=== PATIENT | male | born 1950 | race Caucasian/White ===

== ENCOUNTER 2016-11-10 07:58 | Outpatient (CLI) | payer MEDICARE, OTHER | END 2016-11-10 07:59 | disposition home or self-care (01) | LOC: NC 07:58 | PROVIDERS: ATTEND Family Medicine | DX: E11.9 Type 2 diabetes mellitus without complications (principal) ==

== ENCOUNTER 2016-11-16 09:51 | Inpatient (IN) | payer OTHER, MEDICARE ==
--- NOTE | 2016-11-13 11:13 | HP ---
DATE OF CLINIC: 11/11/2016 COLEMAN ROWLAND : 1950 PLANNED PROCEDURE: Left Knee Uni-arthroplasty with a Possible Total Knee Arthroplasty DATE OF PROCEDURE: November 16, 2016 SURGEON: Dr. Alex Buchanan PCP: Dr. Sloan Monge ACTIVE PROBLEMS * Actinic Keratosis - last skin exam Derm. [place] 10/2012 * Allergic Rhinitis * Bundle Branch Block Right - echo LVEF 65-70% by Dr. Burrell 03/2001, normal cath 03/2011 * Diabetes Mellitus Type 2 * Dupuytren's Contracture - left hand * Dysmetabolic Syndrome X * Elevated Liver Enzymes * Hyperlipidemia * Intestinal Disorder Diverticulosis - colonoscopy 12/2007 (Dr. Steven) * Leukopenia - evaluated 01/[address] Carr, thought to be normal variation. * Male Erectile Dysfunction * Nonalcoholic Steatohepatitis - [facility] Hepatology (Dr. Haddad) 03/2013 * Peyronie's Disease * Renal Cyst - complex left 03/2014 (f/u six and twelve months) * Skin Neoplasm Face Malignant Basal Cell Carcinoma * Skin Neoplasm Trunk Basal Cell Carcinoma - bx'd 10/2012 HISTORY OF PRESENT ILLNESS Coleman Rowland is a 66 year old male. * Medication list reviewed with patient allergy list reviewed with patient. Mr. Rowland is in today pre-operatively for his upcoming left knee uni-compartmental versus total knee arthroplasty with Dr. Buchanan on 11/16/16. Patient presents in good spirits and is ready to proceed. He denies recent illness or change in health. Pre-operative labs from 10/28/16 reveal elevated liver enzymes secondary to his chronic nonalcoholic steatohepatitis. Patient states he's felt well and has good exercises tolerance with the exception of limitations due to his knee. His recent consult with Dr. Buchanan follows: 66-year-old male here for recheck of left knee. He has most recently been seen by Adebayo. He is known to me in the past for a left knee arthroscopy with partial medial meniscectomy and debridement of the medial compartment in 2010. Unfortunately, over the last 2 years he has progressively had more weight-bearing related pain, worse at startup, non-mechanical, fairly diffuse. It is affecting his desired weight-bearing activities. He does some swelling by the end of the day. No hip pain, no radicular symptoms and no significant problems on the contralateral side. He is interested in a definitive treatment algorithm. No recent illnesses. Comorbidities include hyperlipidemia. CURRENT MEDICATION * Aspirin 81 MG Tablet Delayed Release 1 once a day 0 days, 0 refills * Lovastatin 40 MG Tablet 1 every bedtime, 30 days, 3 refills * Pentoxifylline ER 400 MG Tablet Extended Release as directed 0 days, 0 refills * Viagra 100 MG Tablet TAKE 1/2 TO 1 TAB BY MOUTH 1/2 TO 4 HOURS PRIOR TO SEXUAL ACTIVITY -MAX 1 TAB PER DAY, 30 days, 0 refills PAST MEDICAL/SURGICAL HISTORY Reported: Medical: A history of cancer 3 basal cell carcinoma removed from face and torso, Reported numbness, Reported tingling, cardiac history, history of Arthritis, and Hyperlipidemia. Surgical / Procedural: Arthroscopy Left knee scope 04/15/[address] Buchanan and Cardiac surgery angiogram 2009. Diet: A high-fat diet. Diagnoses: Sinusitis. Cancer skin basal cell carcinoma nasal bridge and left face hyperlipidemia arthritis left knee and lower back hepatitis acute illness when younger DDD L4 Colonoscopy one year ago by Dr. Steven Basal cell ca right upper lip, follow up Moh's scheduled by Derm for April. Surgical: * Vasectomy x 2 second 15 years ago. vasectomy reversal in between SOCIAL HISTORY Behavioral: Caffeine use and non-smoker never smoked. Smoking status: Never smoker and smoking status: Never smoker. Alcohol: Alcohol 2-3 drinks a week and alcohol use. Home Environment: Lives with spouse. 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 Marital: Marital history 4 children. * SBIRT Screening Performed Diet: fairly good per patient. High triglycerides. ALLERGIES * Grass Pollen FAMILY HISTORY Coronary artery disease Paternal: Diabetes mellitus Maternal: Hypertension REVIEW OF SYSTEMS Systemic: No fever and no recent weight change. Head: No head symptoms. Cardiovascular: No cardiovascular symptoms. Pulmonary: No pulmonary symptoms. Gastrointestinal: No gastrointestinal symptoms. Psychological: No psychological symptoms. Skin: No skin lesions and no rash. PHYSICAL FINDINGS * Vitals taken 11/11/2016 10:05 am BP-Sitting R 125/71 mmHg 100 - 120/60 - 80 BP Cuff Size Regular Pulse Rate-Sitting 64 bpm 50 - 100 Temp-Oral 97.4 F 96 - 101 Height 72 in 64 - 74 Weight 198 lbs 123 - 215 Body Mass Index 26.9 kg/m2 Body Surface Area 2.12 m2 Pain Level 1 Ears, Nose, Throat: * ENT: normal. Lungs: * Clear to auscultation. Cardiovascular: Heart Rate and Rhythm: * Normal. Abdomen: * Normal. Neurological: Motor: * Dominant Hand = Right Hand. Patient is a well-developed, well-nourished male in no acute distress, normal-appearing mood and affect. He ambulates with a stiff-legged, antalgic gait. He has genu varum on the left. Exam of the left knee shows mild swelling, trace effusion. Motion is just shy of full extension to 125 degrees actively, passively 0-130. His varus is correctable to neutral. He is mildly tender medially, mildly tender laterally accentuated with varus stress. No pain with patellar compression. Ligamentous exam is intact for cruciates and collaterals. Calf is soft and NT. Distal light touch sensation and motor function are grossly intact and symmetric. Pulses are 1+ and symmetric, posterior tibial and dorsalis pedis. Gentle rotation of the hip is nonirritable. Contralateral knee shows normal alignment, full, nonirritable motion with no focal periarticular tenderness. TESTS X-rays, 4 views from 01/10/16 reviewed, compared to prior films show progression of complete medial joint space loss, periarticular sclerosis and marginal spurring. There is slight irregularity at the lateral tibial spine. Patellofemoral joint is relatively well preserved. ASSESSMENT * Localized primary osteoarthritis of the left knee DJD, left knee, involving primarily the medial compartment radiographically and by exam. PREVIOUS TESTS * Test: URINALYSIS Report Date: 10/28/2016 GLUCOSE NEGATIVE PH,URINE 5.0 SPEC. GRAVITY 1.025 KETONE NEGATIVE NITRITE NEGATIVE BLOOD NEGATIVE BILIRUBIN NEGATIVE APPEARANCE CLEAR PROTEIN NEGATIVE COLOR YELLOW LEUK ESTERASE NEGATIVE UROBILINOGEN NORMAL * Test: CBC WITH DIFF Report Date: 10/28/2016 WBC 4.0 10*3/mL MCV 91.9 fL RBC 4.96 10*6/uL NEUTROPHILS 46.7 % MCH 29.8 pg MCHC 32.5 g/dL Low RDW 13.2 % PLATELET COUNT 163 10*3/mL IMM NEUT % 0.5 % IMM NEUT # 0.0 10*3/mL MONOCYTES 12.2 % High BASOPHIL 0.7 % EOSINOPHIL 2.2 % HCT 45.6 % HGB 14.8 g/L LYMPHOCYTE 37.7 % ANC 1.9 10*3/mL * Test: PROTHROMBIN TIME Report Date: 10/28/2016 PROTIME 10.2 s INR 0.97 * Test: PARTIAL THROMBOPLASTIN TIME Report Date: 10/28/2016 APTT 24.7 s * Test: COMPREHENSIVE METABOLIC PANEL Report Date: 10/28/2016 ALT/SGPT 87 U/L High ALBUMIN 4.2 g/dL ALB/GLOB RATIO 1.4 BUN 19 mg/dL BUN/CREAT RATIO 21 High CALCIUM 9.4 mg/dL GLUCOSE 160 mg/dL High CREATININE 0.9 mg/dL SODIUM 138 meq/L POTASSIUM 4.4 meq/L CHLORIDE 102 meq/L CARBON DIOXIDE 31 meq/L ANION GAP 9 meq/L TOT PROTEIN 7.3 g/dL GLOBULIN 3.1 g/dL BILI,TOTAL 0.6 mg/dL AST/SGOT 53 U/L High ALK PHOSPHATASE 230 U/L High GFR 85 * Test: MRSA SCREEN Report Date: 10/29/2016 MRSA SCREEN NEGATIVE * Test: MSSA SCREEN Report Date: 10/29/2016 MSSA SCREEN NEGATIVE FOR STAPHYLOCOCCUS AUREUS THERAPY * Patient fall risk screen negative and Patient fall risk screen negative. * Patient eligible for fall risk assessment and Patient eligible for fall risk assessment. * Patient received fall risk assessment and Patient received fall risk assessment. PLAN * OTHER OxyCONTIN 10 MG T12A, 1 po q 12 hours-TO BE USED FOR AFTER SURGERY, 10 days, 0 refills TraMADol HCl 50 MG TABS, 1 po q 6 hours prn pain-TO BE USED FOR AFTER SURGERY, 5 days, 0 refills OxyCODONE HCl 5 MG TABS, 1-2 po q 4-6 hours for break thru pain if needed-TO BE USED FOR AFTER SURGERY, 5 days, 0 refills * Knee replacement -partial, on the left with possible total knee arthroplasty Discussed with patient in detail the limitations, expectations as well as risks and possible complications of surgery including, but not limited to wound problems or infection, neurovascular injury, continued knee pain or dysfunction, including the possibility of prosthetic wear or failure over time that may require additional operative or non-operative treatment. Patient also realizes the perioperative risks including risks associated with anesthesia and would like to proceed. A full PAR conference was held, questions and concerns addressed and informed consent was obtained. Patient will be sent from my office for completion of the preoperative workup. [place] Hospitalist consult for perioperative medical management. Patient will use aspirin postoperatively for DVT prophylaxis. Patient would like to perform their postop PT at [facility] [place] with total knee arthroplasty protocol. CARE TEAM Sloan Monge MD [facility] Estuardo Camara MD Urology CC: Sloan Monge MD, [facility] [place] RS/sg
[~2016-11-16 09:51] MED LIST: BUPIVACAINE 0.25% (MDV) 20 ML in SODIUM CHLORIDE 0.9% FLUSH 20 ML IF PRN; BUPIVACAINE 0.25% (MDV) 24 ML, MORPHINE SULFATE 8 MG, EPINEPHRINE 0.3 MG in SODIUM CHLO... IF PRN; CEFAZOLIN SODIUM 2 GRAM PREMIX 100 ML IV PRN; CELECOXIB 200 MG CAPSULE PO ONE; CLONIDINE HCL 0.1 MG/24 HR (7 DAY PATCH) TD SCH; FAMOTIDINE 20 MG TABLET PO ONE; GABAPENTIN 600 MG TABLET PO ONE; ONDANSETRON 4 MG/2ML 2 ML VIAL IV ONE; OXYCODONE HCL 10 MG TAB.SR PO ONE; POLYMYXIN B SULFATE 500,000 UNITS, BACITRACIN 25,000 UNITS in SODIUM CHLORIDE 3 L IRRIG... IR PRN; TRAMADOL HCL 50 MG TABLET PO ONE; TRANEXAMIC ACID 1,000 MG in SODIUM CHLORIDE 0.9% 100 ML IV PRN
[2016-11-17] MEDS ORDERED: REMOVE PATCH 1 EACH UNIT TD SCH (07:00)
--- NOTE | 2017-01-18 13:51 | HP ---
DATE OF CLINIC: 12/30/2016 COLEMAN ROWLAND : 1950 PLANNED PROCEDURE: Left knee Uni-Arthroplasty with a Possible Total Knee Arthroplasty DATE OF PROCEDURE: January 19, 2017 SURGEON: Alex Buchanan M.D. PCP: Dr. Sloan Monge ACTIVE PROBLEMS * Actinic Keratosis - last skin exam Derm. [place] 10/2012 * Allergic Rhinitis * Bundle Branch Block Right - echo LVEF 65-70% by Dr. Burrell 03/2001, normal cath 03/2011 * Diabetes Mellitus Type 2 * Dupuytren's Contracture - left hand * Dysmetabolic Syndrome X * Elevated Liver Enzymes * Hyperlipidemia * Intestinal Disorder Diverticulosis - colonoscopy 12/2007 (Dr. Steven) * Leukopenia - evaluated 01/[address] Carr, thought to be normal variation. * Male Erectile Dysfunction * Nonalcoholic Steatohepatitis - [facility] Hepatology (Dr. Haddad) 03/2013 * Peyronie's Disease * Renal Cyst - complex left 03/2014 (f/u six and twelve months) * Skin Neoplasm Face Malignant Basal Cell Carcinoma * Skin Neoplasm Trunk Basal Cell Carcinoma - bx'd 10/2012 HISTORY OF PRESENT ILLNESS Coleman Rowland is a 66 year old male. * Medication list reviewed with patient allergy list reviewed with patient. Mr. Rowland is in today pre-operatively for his upcoming left knee uni-compartmental versus total knee arthroplasty with Dr. Buchanan on 01/19/17. Patient presents in good spirits and is ready to proceed. He denies recent illness or change in health. No prior surgical complications. Pre-operative labs are pending. Prior pre-op labs from 10/28/16 reveal elevated liver enzymes secondary to his chronic nonalcoholic steatohepatitis. Patient states he's felt well and has good exercises tolerance with the exception of limitations due to his knee. His recent consult with Dr. Buchanan follows: 66-year-old male here for recheck of left knee. He has most recently been seen by Adebayo. He is known to me in the past for a left knee arthroscopy with partial medial meniscectomy and debridement of the medial compartment in 2010. Unfortunately, over the last 2 years he has progressively had more weight-bearing related pain, worse at startup, non-mechanical, fairly diffuse. It is affecting his desired weight-bearing activities. He does some swelling by the end of the day. No hip pain, no radicular symptoms and no significant problems on the contralateral side. He is interested in a definitive treatment algorithm. No recent illnesses. Comorbidities include hyperlipidemia. CURRENT MEDICATION * Aspirin 81 MG Tablet Delayed Release 1 once a day 0 days, 0 refills * Lovastatin 40 MG Tablet 1 every bedtime, 30 days, 3 refills * MetFORMIN HCl 500 MG Tablet 1 twice a day with meals, 90 days, 3 refills * OxyCODONE HCl 5 MG Tablet 1-2 po q 4-6 hours for break thru pain if needed-TO BE USED FOR AFTER SURGERY, 5 days, 0 refills * OxyCONTIN 10 MG Tablet ER 12 Hour Abuse-Deterrent 1 po q 12 hours-TO BE USED FOR AFTER SURGERY, 10 days, 0 refills * Pentoxifylline ER 400 MG Tablet Extended Release as directed 0 days, 0 refills * TraMADol HCl 50 MG Tablet 1 po q 6 hours prn pain-TO BE USED FOR AFTER SURGERY, 5 days, 0 refills * Viagra 100 MG Tablet TAKE 1/2 TO 1 TAB BY MOUTH 1/2 TO 4 HOURS PRIOR TO SEXUAL ACTIVITY -MAX 1 TAB PER DAY, 30 days, 0 refills PAST MEDICAL/SURGICAL HISTORY Reported: No recent change in medical history. Medical: A history of cancer 3 basal cell carcinoma removed from face and torso, Reported numbness, Reported tingling, cardiac history, history of Arthritis, and Hyperlipidemia. Surgical / Procedural: Arthroscopy Left knee scope 04/15/[address] Buchanan and Cardiac surgery angiogram 2009. Diet: A high-fat diet. Diagnoses: Sinusitis. Cancer skin basal cell carcinoma nasal bridge and left face hyperlipidemia arthritis left knee and lower back hepatitis acute illness when younger DDD L4 Colonoscopy one year ago by Dr. Steven Basal cell ca right upper lip, follow up Moh's scheduled by Derm for April. Surgical: * Vasectomy x 2 second 15 years ago. vasectomy reversal in between SOCIAL HISTORY Social history unchanged. Behavioral: Caffeine use daily and non-smoker never smoked. Smoking status: Never smoker. Alcohol: Alcohol 2-3 drinks a week and alcohol use occasional (2 beers per week or less). Home Environment: Lives with spouse. 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 Marital: Marital history 4 children. * SBIRT Screening Performed Diet: fairly good per patient. High triglycerides. ALLERGIES * atorvastatin calcium (Intolerance) Reaction: Sleeplessness, itcing * Grass Pollen FAMILY HISTORY Coronary artery disease Paternal: Diabetes mellitus Maternal: Hypertension REVIEW OF SYSTEMS Systemic: No fever and no recent weight change. Head: No head symptoms. Cardiovascular: No cardiovascular symptoms. Pulmonary: No pulmonary symptoms. Gastrointestinal: No gastrointestinal symptoms. Psychological: No psychological symptoms. Skin: No skin lesions and no rash. PHYSICAL FINDINGS * Vitals taken 12/30/2016 11:05 am BP-Sitting L 129/73 mmHg 100 - 120/60 - 80 BP Cuff Size Regular Pulse Rate-Sitting 62 bpm 50 - 100 Temp-Oral 97 F 96 - 101 Height 72 in 64 - 74 Weight 201 lbs 123 - 215 Body Mass Index 27.3 kg/m2 Body Surface Area 2.13 m2 Pain Level 0 Ears, Nose, Throat: * ENT: normal. Lungs: * Clear to auscultation. Cardiovascular: Heart Rate and Rhythm: * Normal. Abdomen: * Normal. Neurological: Motor: * Dominant Hand = Right Hand. Patient is a well-developed, well-nourished male in no acute distress, normal-appearing mood and affect. He ambulates with a stiff-legged, antalgic gait. He has genu varum on the left. Exam of the left knee shows mild swelling, trace effusion. Motion is just shy of full extension to 125 degrees actively, passively 0-130. His varus is correctable to neutral. He is mildly tender medially, mildly tender laterally accentuated with varus stress. No pain with patellar compression. Ligamentous exam is intact for cruciates and collaterals. Calf is soft and NT. Distal light touch sensation and motor function are grossly intact and symmetric. Pulses are 1+ and symmetric, posterior tibial and dorsalis pedis. Gentle rotation of the hip is non-irritable. Contralateral knee shows normal alignment, full, non-irritable motion with no focal periarticular tenderness. TESTS X-rays, 4 views from 01/10/16 reviewed, compared to prior films show progression of complete medial joint space loss, periarticular sclerosis and marginal spurring. There is slight irregularity at the lateral tibial spine. Patellofemoral joint is relatively well preserved. ASSESSMENT * Localized primary osteoarthritis of the left knee DJD, left knee, involving primarily the medial compartment radiographically and by exam. THERAPY * Patient fall risk screen negative. * Patient eligible for fall risk assessment. * Patient received fall risk assessment. PLAN * Unilateral primary osteoarthritis, left knee Physical Therapy: [facility] [phone] * Knee replacement -partial, on the left with possible total knee arthroplasty Discussed with patient in detail the limitations, expectations as well as risks and possible complications of surgery including, but not limited to wound problems or infection, neurovascular injury, continued knee pain or dysfunction, including the possibility of prosthetic wear or failure over time that may require additional operative or non-operative treatment. Patient also realizes the perioperative risks including risks associated with anesthesia and would like to proceed. A full PAR conference was held, questions and concerns addressed and informed consent was obtained. Patient will be sent from my office for completion of the preoperative workup. [place] Hospitalist consult for perioperative medical management. Patient will use aspirin 325mg daily for 6 weeks postoperatively for DVT prophylaxis. Patient would like to perform their postop PT at [facility] in [place] with left total knee arthroplasty protocol. CARE TEAM Sloan Monge MD [facility] Estuardo Camara MD Urology CC: Sloan Monge MD, [facility] [place] RS/sg
[2017-01-19] MEDS ORDERED: OXYCODONE HCL 10 MG TAB.SR PO ONE ×2 (05:30→05:33)
[2017-01-19] MEDS ORDERED: BUPIVACAINE 0.25% (MDV) 20 ML in SODIUM CHLORIDE 0.9% FLUSH 20 ML IF PRN (05:30)
[2017-01-19] MEDS ORDERED: CELECOXIB 200 MG CAPSULE PO ONE (05:30)
[2017-01-19] MEDS ORDERED: BUPIVACAINE 0.25% (MDV) 24 ML, MORPHINE SULFATE 8 MG, EPINEPHRINE 0.3 MG in SODIUM CHLO... IF PRN (05:30)
[2017-01-19] MEDS ORDERED: CLONIDINE HCL 0.1 MG/24 HR (7 DAY PATCH) TD SCH (05:30)
[2017-01-19] MEDS ORDERED: TRANEXAMIC ACID 1,000 MG in SODIUM CHLORIDE 0.9% 100 ML IV PRN (05:30)
[2017-01-19] MEDS ORDERED: GABAPENTIN 600 MG TABLET PO ONE (05:30)
[2017-01-19] MEDS ORDERED: ONDANSETRON 4 MG/2ML 2 ML VIAL IV ONE (05:30)
[2017-01-19] MEDS ORDERED: POLYMYXIN B SULFATE 500,000 UNITS, BACITRACIN 25,000 UNITS in SODIUM CHLORIDE 3 L IRRIG... IR PRN (05:30)
[2017-01-19] MEDS ORDERED: CEFAZOLIN SODIUM 2 GRAM DUPLEX 50 ML IV PRN (05:30)
[2017-01-19] MEDS ORDERED: IV START KIT ONE (05:30)
[2017-01-19] MEDS ORDERED: TRAMADOL HCL 50 MG TABLET PO ONE (05:30)
[2017-01-19] MEDS ORDERED: FAMOTIDINE 20 MG TABLET PO ONE (05:30)
[2017-01-19] MEDS ORDERED: LACTATED RINGERS 1,000 ML ONE (05:30)
[2017-01-19] MEDS ORDERED: CLONIDINE HCL 0.1 MG/24 HR (7 DAY PATCH) TD ONE (05:33)
[2017-01-19] MEDS ORDERED: TRAMADOL HCL 50 MG TABLET ONE (05:33)
[2017-01-19] MEDS ORDERED: ONDANSETRON 4 MG/2ML 2 ML VIAL ONE (05:33)
[2017-01-19] MEDS ORDERED: GABAPENTIN 600 MG TABLET ONE (05:33)
[2017-01-19] MEDS ORDERED: FAMOTIDINE 20 MG TABLET ONE (05:33)
[2017-01-19] MEDS ORDERED: CELECOXIB 200 MG CAPSULE ONE (05:33)
[2017-01-19] MEDS ORDERED: CEFAZOLIN SODIUM 2 GRAM PREMIX 100 ML IV ONE (06:01)
[2017-01-19] MEDS ORDERED: MIDAZOLAM HCL 5 MG/5 ML VIAL ONE (06:30)
[2017-01-19] MEDS ORDERED: FENTANYL 100 MCG/2 ML VIAL ONE (06:30)
[2017-01-19] MEDS ORDERED: PROPOFOL 40 ML IV ONE (06:33)
[2017-01-19] MEDS ORDERED: LIDOCAINE 2% (PRES FREE) 5 ML VIAL ONE (06:33)
[2017-01-19] MEDS ORDERED: SPINAL PROCEDURAL TRAY 1 EACH ONE (06:39)
[2017-01-19] MEDS ORDERED: ROPIVACAINE 0.5% 30 ML VIAL ONE (06:39)
[2017-01-19] MEDS ORDERED: NERVE BLOCK PROCEDURAL TRAY 1 EACH ONE (06:43)
[2017-01-19] MEDS ORDERED: EPHEDRINE SULFATE UD SYR 25 MG 25 MG/5 ML SYRINGE IV ONE (08:01)
[2017-01-19] MEDS ORDERED: ON-Q PUMP/ROPIVACAINE 0.2% 450 ML ONE (09:19)
[2017-01-19] MEDS ORDERED: ON-Q PUMP/ROPIVACAINE 0.2% 450 ML in PREMIX BAG 1 EACH NB PRN ×2 (09:56→10:02)
[2017-01-19] MEDS ORDERED: LABETALOL HCL 5 MG/ML 20ML VIAL IV PRN (09:56)
[2017-01-19] MEDS ORDERED: MEPERIDINE 25 MG/ML SYRINGE IV PRN (09:56)
[2017-01-19] MEDS ORDERED: PROMETHAZINE HCL 25 MG SUP PR PRN (09:56)
[2017-01-19] MEDS ORDERED: NALOXONE HCL 0.4 MG/ML VIAL IV PRN (09:56)
[2017-01-19] MEDS ORDERED: FENTANYL 100 MCG/2 ML VIAL IV PRN (09:56)
[2017-01-19] MEDS ORDERED: ATROPINE SULFATE 0.4 MG/1 ML VIAL IV PRN (09:56)
[2017-01-19] MEDS ORDERED: HYDRALAZINE HCL 20 MG/1 ML VIAL IV PRN (09:56)
[2017-01-19] MEDS ORDERED: ONDANSETRON 4 MG/2ML 2 ML VIAL IV PRN ×2 (09:56→10:02)
[2017-01-19] MEDS ORDERED: HYDROMORPHONE HCL 1 MG/ML SYRINGE IV PRN (09:56)
--- NOTE | 2017-01-19 09:59 | PCMBPN ---
Brief Post Op Note: Date of Procedure: 01/19/17 Preoperative Diagnosis: left knee DJD Postoperative Diagnosis: same Procedure: left knee medial UKA Surgeon: Alex Buchanan MD Assist: Aleksandr (KARI) Anesthesia: spinal/add block (Alvaro) Findings: medial isolated DJD Condition: stable to PAR Complications: none IV Fluids: 1200 mLs of LR Urine Output: 100 mLs Estimated Blood Loss: 50 mLs Tourniquet Time: ~65 Specimens: [N/A] Implants: ZUK Drains: none
[2017-01-19] MEDS ORDERED: LACTATED RINGERS 1,000 ML IV SCH (10:00)
[2017-01-19] MEDS ORDERED: HYDROMORPHONE HCL 0.5 MG/0.5 ML SYRINGE IV PRN (10:02)
[2017-01-19] MEDS ORDERED: TEMAZEPAM 15 MG CAPSULE PO PRN (10:02)
[2017-01-19] MEDS ORDERED: CALCIUM CARBONATE 500 MG TAB.CHEW PO PRN (10:02)
[2017-01-19] MEDS ORDERED: KETOROLAC TROMETHAMINE 30 MG/ML 1 ML VIAL IV PRN (10:02)
[2017-01-19] MEDS ORDERED: OXYCODONE HCL 5 MG TABLET PO PRN (10:02)
--- NOTE | 2017-01-19 10:23 | RAD ---
KNEE LEFT 1 OR 2 VIEWS COMPARISON: Left knee 4 views, 01/10/2016. Left leg bone length study, 09/18/2016 HISTORY: Postop left knee medial compartment hemiarthroplasty today. FINDINGS: Views: Left knee AP and crosstable lateral Bones: Improved alignment. Joints: Medial compartment hemiarthroplasty. Soft tissues: Normal. IMPRESSION: Satisfactory appearance of the left knee medial compartment hemiarthroplasty.
[2017-01-19 11:43] VITALS: BMI 25.6
[2017-01-19] MEDS ORDERED: SODIUM CHLOR 0.45%/KCL 20 MEQ 1,000 ML ONE (12:07)
[2017-01-19] MEDS ORDERED: PUMP TUBING ONE (12:09)
[2017-01-19] MEDS ORDERED: INSULIN ASPART (DOSE) 100 UNITS/1 ML SUB-Q PRN (14:38)
--- NOTE | 2017-01-19 15:33 | CONS ---
COLEMAN ROWLAND DATE OF ADMISSION: January 19, 2017 DATE OF CONSULTATION: January 19, 2017 ATTENDING PHYSICIAN: Alex Buchanan M.D. PRIMARY CARE PHYSICIAN: Sloan Monge M.D. CONSULTING PHYSICIAN: Sathish Valenzuela M.D. REASON FOR CONSULTATION: Medical management in the perioperative period. HISTORY OF PRESENT ILLNESS: Mr. Rowland is a 66-year-old male who earlier today underwent a left knee unicompartmental arthroplasty by Dr. Buchanan. Please see Dr. Buchanan's notes for details. The surgery was apparently successful and uncomplicated. I am seeing him in the postoperative period. REVIEW OF SYSTEMS: No headache, no visual symptoms, no difficulty swallowing, no chest pain or shortness of breath, no heart palpitations. No nausea, vomiting or diarrhea. No extremity weakness, numbness, tingling or swelling. Pain control is good. No recent fever or chills. PAST MEDICAL HISTORY: 1. Diabetes mellitus type 2. This has primarily been diet controlled. Though he recently has been put on low dose metformin. 2. Chronic right bundle branch block. He is status post normal cardiac catheterization Mar, 2011, as well as an echocardiogram Mar, 2011, showing ejection fraction 65 to 70% and no wall motion abnormalities. 3. Elevated liver transaminases on recent blood tests felt to be secondary to nonalcoholic steatohepatitis. 4. Leukopenia in the past. This was worked up by oncology and was felt to be a normal variant. 5. Peyronie's disease followed by urology up at [facility]. PAST SURGICAL HISTORY: 1. Left knee arthroscopy in 2010. 2. Colonoscopy in 2007 showing mild diverticulosis. ALLERGIES: ATORVASTATIN CAUSING A RASH. HOME MEDICATIONS: 1. Metformin 500 mg orally twice daily. 2. Lovastatin 20 mg orally in the evening. 3. Aspirin 81 mg orally daily. 4. Pentoxifylline 400 mg orally three times daily. SOCIAL HISTORY: He is . He is a teacher. No tobacco or drug use. Rarely drinks alcohol. FAMILY HISTORY: Noncontributory. PHYSICAL EXAMINATION: VITALS: Temperature 97.5, pulse is 73, blood pressure 118/64, respirations 14 and unlabored, oxygen saturation 98% on 2 L. GENERAL: This is a well-developed, well-nourished, middle aged male. He is alert, calm, pleasant. He is a little bit sleepy from postoperative medications though he is feeling well and in no distress. HEENT: Benign. Tympanic membranes are clear. Extraocular movements are intact. Oropharynx is moist. NECK: Supple. No lymphadenopathy. LUNGS: Clear. CARDIOVASCULAR: Heart is regular rate and rhythm. ABDOMEN: Is soft. EXTREMITIES: No edema. Surgical dressings are clean, dry and intact. SCDs and MAX hose are in place. PREOPERATIVE LABORATORIES: Performed December 30, 2016, CBC with a white count of 4.2, hemoglobin 14.5, hematocrit 44.8, platelets of 115. Chemistry panel, sodium of 140, potassium 4.5, chloride 104, carbon dioxide 31, BUN 17, creatinine 0.8, glucose of 75. Bilirubin 0.4, AST 35, ALT 35, alkaline phosphatase 67. Total protein 7.2, albumin 4.3, globulin 2.9. Urinalysis, completely clear. Nasal swab negative for both MRSA and MSSA. ELECTROCARDIOGRAM: Preoperative electrocardiogram performed October 28, 2016 showing normal sinus rhythm with a right bundle branch block. No acute ST or T wave abnormalities. ASSESSMENT AND PLAN: 1. Postoperative day zero status post left knee unicompartmental arthroplasty by Dr. Buchanan. Postoperative care as per Dr. Buchanan. Deep venous thrombosis prophylaxis with mechanical measures and aspirin as per orthopedic protocol. 2. Diabetes mellitus type 2. We will hold his metformin while here and place him on basal/bolus protocol. Plan to resume usual metformin upon discharge. 3. Peyronie's disease. He will resume his usual pentoxifylline when cleared by orthopedics. 4. Hyperlipidemia. He will resume his usual statin upon discharge. 5. Further care as dictated by clinical course. cc: Sloan Monge M.D.
[2017-01-19] MEDS: CEFAZOLIN SODIUM 1 GRAM PREMIX 1 G in Premix (D5W) 50 ml 1 EACH IV SCH (16:25)
[2017-01-19] MEDS: ACETAMINOPHEN 500 MG TABLET PO SCH ×2 (16:25→22:07)
[2017-01-19] MEDS ORDERED: TRAMADOL HCL 50 MG TABLET PO PRN (16:30)
[2017-01-19] MEDS: NS/Potassium Chlor 20 mEq 1,000 ML IV SCH ×2 (20:34→21:52)
[2017-01-19] MEDS: DOCUSATE SODIUM 100 MG CAPSULE PO SCH (20:35)
[2017-01-19] MEDS: ASCORBIC ACID 500 MG TABLET PO SCH (20:35)
[2017-01-20] MEDS ORDERED: CEFAZOLIN SODIUM 1 GRAM PREMIX 50 ML IV ONE (00:27)
[2017-01-20] MEDS: CEFAZOLIN SODIUM 1 GRAM PREMIX 1 G in Premix (D5W) 50 ml 1 EACH IV SCH (00:30)
[2017-01-20] MEDS: ACETAMINOPHEN 500 MG TABLET PO SCH ×3 (04:10→16:43)
[2017-01-20] MEDS: NS/Potassium Chlor 20 mEq 1,000 ML IV SCH (04:10)
[2017-01-20] MEDS ORDERED: REMOVE PATCH 1 EACH UNIT TD SCH (05:30)
[2017-01-20 06:57] LABS: HEMATOCRIT 40.9 % (32.0-52.0); HEMOGLOBIN 13.1 gm/l (14.0-18.0); MEAN CELL VOLUME 92.7 fl (80.0-94.0); MEAN CORPUSCULAR HEMOGLOBIN 29.7 pg (27.0-31.0); RED CELL DISTRIBUTION WIDTH 13.6 % (11.5-14.5)
[2017-01-20 07:15] LABS: CALCIUM 8.7 mg/dL (8.6-10.3)
--- NOTE | 2017-01-20 08:26 | PDOC43 ---
- Subjective Findings: ORtho POD 1 L UKA Patient awake, A and O times 4 this am and in good spirits. No present c/o. Denies CP/SOB/NV. Taking solids and positive flatus. Pain is well controlled, 3/ 10 with AROM. Subjective: Denies Chest Pain, Denies Shortness of Breath, Denies Nausea, Denies Vomiting, Denies Fever - Objective Vital Signs Temperature 98.0 F 01/20/17 07:35 Pulse Rate 43 01/20/17 07:35 Respiratory Rate 16 01/20/17 07:35 Blood Pressure 112/58 01/20/17 07:35 O2 Saturation by Pulse Oximetry 100 01/20/17 07:35 Oxygen Delivery Method Room Air Oxygen Flow Rate 0 Laboratory 01/20/17 06:15 01/20/17 06:15 01/20/17 01/19/17 01/19/17 06:15 22:06 16:06 RBC 4.41 L MCHC 32.0 L POC Capillary Glucose 127 H 117 H 01/19/17 10:14 RBC MCHC POC Capillary Glucose 131 H Active Medication Orders Category Date Time Status Acetaminophen [Tylenol] Med 01/19/17 16:00 Active 1,000 mg PO Q6H Ascorbic Acid [Vitamin C] Med 01/19/17 21:00 Active 500 mg PO BID Aspirin (Enteric Coated) [Ecotrin] Med 01/20/17 09:00 Active 325 mg PO DAILY Bisacodyl [Dulcolax] Med 01/22/17 09:[address] DAILY PRN Calcium Carbonate [Tums] Med 01/19/17 10:02 Active 1,000 - 2,000 mg PO Q2H PRN Celecoxib [Celebrex] Med 01/20/17 09:00 Active 200 mg PO DAILY Docusate Sodium [Colace] Med 01/19/17 21:00 Active 100 mg PO BID Hydromorphone HCl [Dilaudid] Med 01/19/17 10:02 Active 0.5 mg IV Q1H PRN Insulin Aspart (Dose) [Novolog (Dose)] Med 01/19/17 14:38 Active See Protocol SUB-Q WM/BEDTIME PRN Ketorolac Tromethamine [Toradol] Med 01/19/17 10:02 Active 30 mg IV Q6H PRN Magnesium Hydroxide [Milk of Magnesia] Med 01/20/17 09:22 Active 30 ml PO DAILY PRN Multivitamins [One-A-Day] Med 01/20/17 09:00 Active 1 tab PO DAILY On-Q Pump/Ropivacaine 0.2% 450 ml Med 01/19/17 09:56 Active Premix Bag [Premix Fluid] 1 each NB Q50H Ondansetron 4 mg/2ml Vial [Zofran] Med 01/19/17 10:02 Active 4 - 6 mg IV Q6H PRN Oxycodone HCl [Roxicodone] Med 01/19/17 10:02 Active 5 - 10 mg PO Q4H PRN Remove Patch Med 01/20/17 09:22 Once 1 each TD X1 ONE Sodium Chloride 0.9% Flush [Normal Saline 10ml Flush] Med 01/19/17 10:02 Active 10 - 50 ml IV PRN PRN Sodium Chloride 0.9% Flush [Normal Saline 10ml Flush] Med 01/19/17 17:00 Active 10 ml IV Q8HR Temazepam [Restoril] Med 01/19/17 10:02 Active 15 mg PO BEDTIME PRN Tramadol HCl [Ultram] Med 01/19/17 16:30 Active 50 mg PO Q6H PRN Intake and Output 01/18/17 01/19/17 01/20/17 23:59 23:59 23:59 Intake Total 3410 1730 Output Total 550 2100 Balance 2860 -370 Neurological: No Normal Gait (ambulating with walker post L UKA) Peripheral Pulses: Left Posterior Tibialis: 1+, Left Dorsalis Pedis: 1+ - Left Lower Extremity Incision: No Dressing Saturated, No Shadow Drainage, No Drainage, No Erythema, No Rash, No [place] Intact (none) Motor: Extensor Hallucis Longus: 5/5, Tibialis Anterior: 5/5, Gastrocnemius: 4/5 , Peroneals: 5/5, Quadriceps: 4/5 Gross Sensation to Light Touch: Present: Deep Peroneal Nerve, Superficial Peroneal Nerve, Medial Plantar Nerve, Lateral Plantar Nerve, Sural Nerve, Saphenous Nerve Motion: Supine AROM knee: 5-60 with passive improvment, SLR without assist, ankle full AROM. - Problems (1) Status post unicompartmental knee replacement, left Status: AcuteAssessment/Plan: Ortho POD 1 L UKA, doing well. 1. Anticoagulation with ASA 325mg daily for 6 weeks, pneumatic compression, TEDS , and mobility. 2. Pain control as written and ongoing Fem Nerve catheter, reduced to 6cc/hr this am. Call for modification. 3. PT/OT BID: L TKA protocol WBAT. 4. Encourage bed exercises, breathing exercises. 5. Appreciate Hospitalist's care.
[2017-01-20] MEDS ORDERED: CELECOXIB 200 MG CAPSULE PO SCH (09:00)
[2017-01-20] MEDS ORDERED: MULTIVITAMINS 1 TAB TABLET PO SCH (09:00)
[2017-01-20] MEDS ORDERED: ASPIRIN (ENTERIC COATED) 325 MG TABLET.EC PO SCH (09:00)
[2017-01-20] MEDS ORDERED: MAGNESIUM HYDROXIDE 30 ML UDCUP PO PRN (09:22)
[2017-01-20] MEDS ORDERED: REMOVE PATCH 1 EACH UNIT TD ONE (09:22)
[2017-01-20] MEDS: ASCORBIC ACID 500 MG TABLET PO SCH (09:49)
[2017-01-20] MEDS: DOCUSATE SODIUM 100 MG CAPSULE PO SCH (09:50)
--- NOTE | 2017-01-20 11:05 | PDOC43 ---
- Subjective Chief Complaint: S/P L Uni Knee Doing well. Wants to go home. Subjective: Reports Pain Tolerable, Reports Tolerating Diet Well, Reports Adequate Oral Intake, Reports Urinating Without Difficulty, Denies Shortness of Breath, Denies Cough, Denies Chest Pain, Denies Abdominal Pain, Denies Nausea, Denies Vomiting, Denies Fever, Denies Chills - Objective Vital Signs Temperature 98.0 F 01/20/17 07:35 Pulse Rate 43 01/20/17 07:35 Respiratory Rate 16 01/20/17 08:00 Blood Pressure 112/58 01/20/17 07:35 O2 Saturation by Pulse Oximetry 100 01/20/17 07:35 Oxygen Delivery Method Room Air Oxygen Flow Rate 0 Intake and Output 01/19/17 01/20/17 01/21/17 06:59 06:59 06:59 Intake Total 5140 Output Total 2650 Balance 2490 General: Alert, Oriented x3, Cooperative, No Acute Distress HEENT: Atraumatic Lungs: Clear to Auscultation Bilaterally Cardiovascular: Regular Rate and Rhythm Abdomen: Soft, Normal Bowel Sounds, Non-Distended, No Tenderness Extremities: Normal Pulses, No Edema, No Tenderness Skin: Normal Color, No Rash, No Erythema Laboratory 01/20/17 06:15 01/20/17 06:15 Current Medications: Current meds reviewed in EMR. - Problems: Assessment/Plan (1) Status post unicompartmental knee replacement, left Status: AcuteAssessment/Plan: POD #1. Doing well. Care per ortho. ASA for DVT proph per ortho protocol. (2) DM2 (diabetes mellitus, type 2) Qualifiers: Diabetes mellitus complication status: without complication Status: ChronicAssessment/Plan: Stable. Resume usual metformin upon d/c. (3) Thrombocytopenia Status: ChronicAssessment/Plan: Mild thrombocytopenia noted on labs this AM. Not too far below baseline borderline low platelets. No s/sx of bleeding. recommend con't with ASA as above. If any s/sx of bleeding will f/u- discussed with pt. Disposition: Anticipate d/c home this PM or in AM.
[2017-01-20 12:16] VITALS: BP 139/72
--- NOTE | 2017-01-21 13:34 | OP ---
COLEMAN BEARD [id number] : 1950 DATE OF SURGERY: January 19, 2017 PREOPERATIVE DIAGNOSIS: DJD, left knee. POSTOPERATIVE DIAGNOSIS: SAME PROCEDURE: Left knee medial unicompartmental arthroplasty COMPONENTS: ZUK size D cemented femoral component, size 4 cemented tibial base plate, 8mm Vivacit E cross-linked polyethylene articular insert. SURGEON: Alex Buchanan M.D. DYNAMOMETER MECHANIC: Aleksandr MONROY) ANESTHESIA: Spinal plus adductor nerve block per [facility]. ESTIMATED BLOOD LOSS: 50 cc IV FLUID REPLACEMENT: per anesthesia, 1.2 liters crystalloid. URINE OUTPUT: 100 cc DRAINS: None TOURNIQUET TIME: 65 minutes COMPLICATIONS: None HISTORY: Briefly, patient is a 66-year-old male with clinical and radiographic evidence of advanced degenerative disease of the medial compartment of the left knee. Patient has failed traditional non-operative management and desire elective unicompartmental arthroplasty vs total knee arthroplasty. For additional details, please refer to the previously dictated Preoperative History and Physical Examination. A PAR conference was held, questions and concerns were addressed, and informed consent was obtained. FINDINGS: Medial eburnation with proximal tibial and distal femoral wear. Patellofemoral and lateral compartments were preserved. The ACL was intact. He has a very mild fixed flexion contracture under anesthesia of less than 5 degrees. His varus deformity was partially correctable, although not towards neutral. PROCEDURE: The patient was taken to the operating room after the placement of a spinal anesthetic and regional nerve block. They were placed supine on the operating room table, a tourniquet was applied to the proximal thigh and the left lower extremity was prepped and draped out in the usual sterile fashion. Preoperative IV antibiotics were given empirically. Intraoperative DVT prophylaxis consisted of contralateral foot pumps. Personal filtration suits were used as was a closed room environment. At this point WHO timeout was taken. Surgical site was identified and confirmed. The leg was then elevated and the tourniquet inflated after gravity exsanguination. Tranexamic acid was infiltrated over 10 minutes prior to incision, 1 gram dose per protocol. A similar 2nd dose was given at initiation of closure. With the knee flexed, an anteromedial incision was made from the level of the tibial tubercle to the superior pole of the patella. A medial arthrotomy was performed. A medial subperiosteal proximal tibial release was performed and a portion of the anterior fat pad was excised to improve visualization. We evaluated the involvement of the patellofemoral compartment as well as the lateral compartment. We confirmed the ACL was intact. The anterior horn of the medial meniscus was excised. Minimally invasive instrumentation and philosophy were used throughout the procedure in an attempt to decrease the extent of soft tissue disruption/damage. The extramedullary tibial alignment jig was placed. This was aligned parallel to the tibia and a perpendicular cut made proximally removing approximately 3mm of bone at the low point. I used a sagittal and reciprocating saw. Marginal osteophytes were removed. Attention was then directed to the femur. Linked jig was placed and secured in extension. We confirmed alignment as per our preoperative plan and the distal femoral cut made. This seemed best balanced with a 10. We confirmed reasonable extension gap. We confirmed the size of the femur and placed the appropriate posterior and posterior chamfer cutting block. These cuts were made as was drilling of the femoral lugs. Residual marginal osteophytes were removed. We then confirmed the flexion and extension gaps were balanced. Tibia was then sized. We passed a small osteotome at the lateral border and placed our tibial trial. Tibial lugs were drilled and we trialed the entire construct obtaining full extension and smooth rollback. Satisfied, double antibiotic pulsatile lavage was used to irrigate the knee and clean the cancellous jay jay interstices which were then carefully dried. Periarticular injection was done at this point per protocol of the posterior capsule, posteromedial knee and synovium. A single dose of high viscosity, antibiotic impregnated polymethylmethacrylate was used to cement the tibial followed by femoral components. The knee was held in extension while the cement cured. All residual methacrylate was meticulously removed. Attention was then directed towards closure. Tranexamic acid was infiltrated over 10 minutes, dose per protocol. We irrigated and the retinaculum was closed with a running #2 absorbable StratoFix suture. A second periarticular injection was done at this point per protocol. The repair was checked in maximum flexion. We then lightly irrigated the subcutaneous tissue and closed with interrupted 2-0 and 3-0 Vicryl Plus. The skin was then re-approximated with surgical clips. A sterile Aquacel dressing was applied followed by a compression dressing. The patient was then transferred to their hospital bed and sent to the post anesthesia recovery room in stable condition. They tolerated the procedure well. Sponge, instrument, and needle count were correct. CC: [facility]
--- NOTE | 2017-01-21 13:35 | DS ---
Stevan BEARD [id number] : 1950 DATE OF ADMISSION: January 19, 2017 DATE OF DISCHARGE: January 20, 2017 DISCHARGE DIAGNOSES: Left knee degenerative joint disease isolated to the medial compartment of his left knee. HOSPITAL PROCEDURES: Left knee unicompartmental arthroplasty medial side. SURGEON: Alex Buchanan M.D. BRIEF HISTORY: Patient is a 66-year-old gentleman with both clinical and radiographic evidence of advanced DJD the medial compartment of his left knee. For the full history please see the chart note. BRIEF HOSPITAL COURSE: Patient was admitted on January 19, 2017. Dr. Alex Buchanan performed a left unicompartmental knee arthroplasty. They were moved to the recovery room in stable condition. They were given 4 doses of antibiotic for empiric coverage. DVT prophylaxis consisted of aspirin 325 mg daily for six, pneumatic compression device MAX hose and mobility. PT was instituted postop day 1 with excellent pain control with left total knee arthroplasty protocol, weightbearing as tolerated. Their incision site remained benign, their vital signs remained stable and they remained neurally and vascularly intact through the duration of the stay. They were discharged home on postop day 1 to continue their outpatient PT at [facility] with left total knee arthroplasty protocol, weightbearing as tolerated. Sander Bentley M.D. consulted to manage perioperative medical comorbidities. For this consultation please see the chart note. DISCHARGE INSTRUCTIONS: 1. Keep the wound site clean. May shower with Aquacel dressing intact. Call office with any questions or concerns and f/u for your dressing change as scheduled 1 week postop. 2. Continue the use of MAX hose bilaterally. 3. Cooling unit 3-4 times daily for 30 minutes duration. 4. Outpatient PT at [facility] for left total knee arthroplasty protocol, weightbearing as tolerated. MEDICATIONS: 1. Patient is to resume normal preop medications. 2. Anti-coagulation will be with aspirin 325 mg daily for six weeks. 3. Pain management will be with OxyContin, 10mg every 12 hours x 10 days, Oxycodone, 5mg 1-2 every 4 hours prn for breakthrough pain, and Tramadol, 50mg every 6 hours prn pain. 4. Patient was also advised on utilization of a multi-vitamin with mineral daily as well as Vitamin C, 500mg daily for 1 month. 5. Patient encouraged to take an iron supplement in the form of ferrous sulfate, 325mg daily for 4 weeks. 6. Colace, 100mg, b.i.d. until regular bowel movement. FOLLOW-UP: Please return to the clinic as scheduled for your first scheduled postop check. Prior to that point in time please call with any questions or concerns. Job: [id number] CC: [facility] Sloan Monge M.D. [facility] in [place]
[2017-01-22] MEDS ORDERED: BISACODYL 10 MG SUP PR PRN (09:22)
== END 2017-01-20 17:55 | disposition home or self-care (01) | DRG 470 ==
LOC: OR 01-19 05:34 → MS 01-19 10:33
PROVIDERS: ADMIT Orthopaedic Surgery; ATTEND Orthopaedic Surgery
PROC: 0SRD0L9 Replacement of Left Knee Joint with Medial Unicondylar Synthetic Substitute, Cemented, Open Approach (ICD-10-PCS; principal; 2017-01-19)
DX: M17.12 Unilateral primary osteoarthritis, left knee (principal); E11.9 Type 2 diabetes mellitus without complications; Z79.84 Long term (current) use of oral hypoglycemic drugs; R74.8 Abnormal levels of other serum enzymes; D69.6 Thrombocytopenia, unspecified; I45.10 Unspecified right bundle-branch block; E88.81 Metabolic syndrome and other insulin resistance; E78.5 Hyperlipidemia, unspecified; K75.81 Nonalcoholic steatohepatitis (NASH); N48.6 Induration penis plastica; N28.1 Cyst of kidney, acquired; Z79.82 Long term (current) use of aspirin; Z88.8 Allergy status to other drugs, medicaments and biological substances